=== PATIENT | female | born 1970 | race Caucasian/White ===

== ENCOUNTER 2021-02-07 14:28 | Emergency (ER) | payer OTHER, SELFPAY ==
[2021-02-07 14:41] VITALS: BP 138/80; PULSE 97; RESP 20; TEMP 37.1; O2SAT 98
--- NOTE | 2021-02-07 15:12 | ED.URI ---
HPI - URI/Sore Throat General Chief Complaint: Upper Respiratory Infection Stated Complaint: sore throat Time Seen by Provider: 02/07/21 15:12 Source: patient Mode of arrival: ambulatory Limitations: no limitations History of Present Illness HPI Narrative: Priscilla Christine is a 51-year-old female with a PMH of T1 diabetes [facility] with upper respiratory symptoms but has had a dry cough for 2 weeks and shortness of breath x10 days, yesterday developedsore throat with chills Has had Levon & Levon vaccine Related Data Home Medications Medication Instructions Recorded Confirmed azelastine INTRANASAL 02/07/21 buspirone mg 02/07/21 cetirizine mg 02/07/21 clonazepam 02/07/21 cyclobenzaprine mg 02/07/21 famotidine 02/07/21 ibuprofen 02/07/21 insulin glargine [Basaglar KwikPen 50 unit SUBCUT BID 02/07/21 02/07/21 U-100 Insulin] insulin lispro [Humalog KwikPen unit SUBCUT 02/07/21 Insulin] losartan 02/07/21 metformin 1,000 mg PO DAILY 02/07/21 02/07/21 omeprazole 02/07/21 prazosin 02/07/21 sumatriptan succinate mg PO 02/07/21 trazodone 02/07/21 venlafaxine mg PO 02/07/21 Allergies Allergy/AdvReac Type Severity Reaction Status Date / Time Penicillins Allergy Hives Verified 02/07/21 15:10 Sulfa (Sulfonamide Allergy Hives Verified 02/07/21 15:11 Antibiotics) Review of Systems Review of Systems: CONSTITUTIONAL: Denies fever, chills, sweats. EYES: Denies visual changes, redness, discharge. ENT: Denies rhinorrhea, congestion, has sore throat, otalgia. CARDIOVASCULAR: Denies chest pain, palpitations, edema. RESPIRATORY: Denies dyspnea, wheezing, has dry cough and sob GASTROINTESTINAL: Denies abdominal pain, nausea, vomiting, diarrhea. GENITOURINARY: Denies dysuria, hematuria, abnormal discharge SKIN: Denies rash or itching. NEUROLOGIC: Denies numbness, or focal weakness. PSYCHIATRIC: Denies anxiety or depression. [facility] Past Medical History Medical History (Updated 02/07/21 @ 15:35 by Kacey Barrios CNP) Anxiety Bipolar 1 disorder Seasonal allergies Type 2 diabetes mellitus Surgical History Surgical History H/O: hysterectomy Family History Family History Other Diabetes mellitus Heart disease Hypertension Social History Social History (Updated 02/07/21 @ 15:26 by Kacey Barrios CNP) Smoking status: Never smoker Alcohol intake: never Substance use: never Comments At time of signature, I agree with nursing past medical, surgical, social and family history. There is no relevant family history pertinent to the presenting complaint. Exam Narrative: GENERAL: This is a well-nourished, well-developed patient, in mild distress. HEAD: normocephalic, atraumatic. EYES: Sclera clear/white. Vision is grossly intact. EARS: External ears normal,. Hearing grossly intact. NOSE: External nose normal without nasal discharge, nares without redness, no rhinorrhea. THROAT: Mucous membranes moist, posterior pharynx erythema with left-sided exudate deep on left side NECK: Neck supple,tender bilateral CARDIOVASCULAR: Regular rate and rhythm without murmurs, gallops, or rubs. RESPIRATORY: Clear to auscultation. Breath sounds equal bilaterally. No wheezes, rales, or rhonchi. GASTROINTESTINAL: Abdomen soft, SKIN: warm, intact with no suspicious lesions or rash, good texture and turgor. NEURO: awake, alert, and oriented to person, place and time. There were no obvious focal neurologic abnormalities. Steady gait EXTREMITIES: Normal range of motion. BACK: Nontender without deformity Course Course Emergency Course: Patient comes with 2 weeks of cough, 10 days of shortness of breath which can be caused by back pain, she days sore throat It was negative, Covid test was negative Based on physical exam started on Keflex (patient states she can take this even with a m
== END 2021-02-07 15:41 | disposition home or self-care (01) ==
PROVIDERS: Emergency Provider Nurse Practitioner; PCP Internal Medicine
DX: R05 Cough (principal); J02.9 Acute pharyngitis, unspecified; E11.9 Type 2 diabetes mellitus without complications
CPT/HCPCS: 87081; 87880; 99203; G0463

== ENCOUNTER 2021-04-19 14:39 | Emergency (ER) | payer OTHER, SELFPAY ==
[2021-04-19 14:42] VITALS: BP 145/94; PULSE 106; RESP 20; TEMP 37.2; O2SAT 98
[2021-04-19 14:59] VITALS: BP 145/94; PULSE 106; RESP 20; TEMP 37.2; O2SAT 98
--- NOTE | 2021-04-19 15:14 | ED.URI ---
HPI - URI/Sore Throat General Chief Complaint: Upper Respiratory Infection Stated Complaint: sinus infection Time Seen by Provider: 04/19/21 14:49 Source: patient and RN notes reviewed Mode of arrival: ambulatory Limitations: no limitations History of Present Illness HPI Narrative: Patient presents today with a 10 to 14-day history of cough, congestion, postnasal drip, sore throat. Patient noticed a blister on her left tonsil 5 days ago as well. She currently rates her sore throat 5/10 and has been taking Tylenol and Sudafed with mild relief. History of diabetes. MD elicited complaint: sore throat and nasal congestion Related Data Home Medications Medication Instructions Recorded Confirmed azelastine 137 mcg INTRANASAL DAILY 02/07/21 04/19/21 buspirone 10 mg PO DAILY 02/07/21 04/19/21 cetirizine 10 mg PO DAILY 02/07/21 04/19/21 clonazepam 0.5 mg PO DAILY 02/07/21 04/19/21 cyclobenzaprine 5 mg PO DAILY 02/07/21 04/19/21 famotidine 40 mg PO DAILY 02/07/21 04/19/21 insulin glargine [Basaglar KwikPen 50 unit SUBCUT BID 02/07/21 04/19/21 U-100 Insulin] insulin lispro [Humalog KwikPen 100 unit SUBCUT DIRECTED PRN 02/07/21 04/19/21 Insulin] losartan 10 mg PO DAILY 02/07/21 04/19/21 metformin 1,000 mg PO DAILY 02/07/21 04/19/21 omeprazole 20 mg PO DAILY 02/07/21 04/19/21 prazosin 2 mg PO DAILY 02/07/21 04/19/21 sumatriptan succinate 50 mg PO DAILY 02/07/21 04/19/21 trazodone 100 mg PO DAILY 02/07/21 04/19/21 venlafaxine 150 mg PO DAILY 02/07/21 04/19/21 escitalopram oxalate 10 mg PO DAILY 04/19/21 04/19/21 methylphenidate HCl 5 mg PO DAILY 04/19/21 04/19/21 [id number] acid 18 tablet PO DAILY 04/19/21 04/19/21 [Certavite-Antioxidant] Allergies Allergy/AdvReac Type Severity Reaction Status Date / Time Penicillins Allergy Hives Verified 04/19/21 14:49 Sulfa (Sulfonamide Allergy Hives Verified 04/19/21 14:49 Antibiotics) Review of Systems Review of Systems: CONSTITUTIONAL: Denies body aches, fever, chills, or sweats. EYES: Denies visual changes, redness, or discharge. ENT: Denies otalgia.+ Congestion, sinus pressure, postnasal drip, sore throat CARDIOVASCULAR: Denies chest pain, palpitations, or edema. RESPIRATORY: Denies dyspnea.+ Cough GASTROINTESTINAL: Denies abdominal pain, nausea, vomiting, or diarrhea. GENITOURINARY: Denies dysuria or hematuria. SKIN: Denies rash, itching, or wounds. MUSCULOSKELETAL: Denies back pain, joint pain, or myalgia. NEUROLOGIC: Denies headache, numbness, tingling, or weakness. PSYCH: Denies depression or anxiety. [facility] Past Medical History Medical History (Updated 04/19/21 @ 15:23 by Hannah Davis, CONCRETE SPREADER, ) Anxiety Bipolar 1 disorder Delivery with history of Depression High cholesterol Seasonal allergies Type 2 diabetes mellitus Surgical History Surgical History H/O: hysterectomy Family History Family History Other Diabetes mellitus Heart disease Hypertension Social History Social History Smoking status: Never smoker Alcohol intake: never Substance use: never Comments At time of signature, I have reviewed and agree with nursing past medical, surgical, social and family history unless otherwise noted. Please see nursing chart for further information. There is no relevant family history pertinent to the presenting complaint Exam Narrative: GENERAL: Well-appearing, well-nourished, and in no acute distress. HEAD: Normocephalic, atraumatic. EYES: EOMI. No redness or drainage. Conjunctivae normal. ENT: Mucous membranes pink and moist. Nares clear. No rhinorrhea. TMs normal bilaterally. Throat mildly erythematous. There appears to be a small tonsil stone on the left tonsil. Uvula midline. NECK: Normal AROM. Supple. No lymphadenopathy.
== END 2021-04-19 15:27 | disposition home or self-care (01) ==
PROVIDERS: Emergency Provider Nurse Practitioner; PCP Internal Medicine
DX: J02.0 Streptococcal pharyngitis (principal); E78.00 Pure hypercholesterolemia, unspecified; E11.9 Type 2 diabetes mellitus without complications; F41.9 Anxiety disorder, unspecified; F32.A Depression, unspecified
CPT/HCPCS: 87880; 99213; G0463

== ENCOUNTER 2021-11-15 14:07 | Emergency (ER) | payer OTHER, SELFPAY ==
--- NOTE | 2021-11-15 14:08 | ED.URI ---
HPI - URI/Sore Throat General Stated Complaint: Sinus Pain Time Seen by Provider: 11/15/21 14:19 Source: patient and RN notes reviewed Mode of arrival: ambulatory Limitations: no limitations History of Present Illness HPI Narrative: 51-year-old female with history of diabetes presents with 2-week history of sinus drainage, pressure, congestion, sinus pain, pain behind her eyes, felt it helped. She reports she is taking [id number] medications such as Mucinex without relief. She reports history of chronic she reports cough that is causing it to be difficult to keep her CPAP on at night. She denies shortness of breath, fever, bodies, chills, sweats. She reports she took a negative COVID test 1 week ago MD elicited complaint: cough and sore throat Related Data Home Medications Medication Instructions Recorded Confirmed azelastine 137 mcg (0.1 %) nasal 137 mcg intranasal DAILY 02/07/21 11/15/21 spray aerosol buspirone 10 mg tablet 10 mg PO DAILY 02/07/21 11/15/21 cetirizine 10 mg tablet 10 mg PO DAILY 02/07/21 11/15/21 clonazepam 0.5 mg tablet 0.5 mg PO DAILY 02/07/21 11/15/21 cyclobenzaprine 5 mg tablet 5 mg PO DAILY 02/07/21 11/15/21 famotidine 40 mg tablet 40 mg PO DAILY 02/07/21 11/15/21 insulin glargine 100 unit/mL (3 50 unit subcut BID 02/07/21 11/15/21 mL) subcutaneous pen (Basaglar KwikPen U-100 Insulin) insulin lispro 100 unit/mL 100 unit subcut DIRECTED PRN 02/07/21 11/15/21 subcutaneous pen (Humalog KwikPen Hyperglycemia (U-100) Insulin) losartan 100 mg tablet 10 mg PO DAILY 02/07/21 11/15/21 metformin 500 mg tablet,extended 1,000 mg PO DAILY 02/07/21 11/15/21 release 24 hr omeprazole 20 mg capsule,delayed 20 mg PO DAILY 02/07/21 11/15/21 release prazosin 2 mg capsule 2 mg PO DAILY 02/07/21 11/15/21 sumatriptan succinate 50 mg tablet 50 mg PO DAILY 02/07/21 11/15/21 trazodone 100 mg tablet 100 mg PO DAILY 02/07/21 11/15/21 venlafaxine 150 mg 150 mg PO DAILY 02/07/21 11/15/21 capsule,extended release 24 hr escitalopram oxalate 10 mg tablet 10 mg PO DAILY 04/19/21 11/15/21 methylphenidate HCl 5 mg tablet 5 mg PO DAILY 04/19/21 11/15/21 multivitamin-ferrous 18 tablet PO DAILY 04/19/21 11/15/21 fumarate-folic acid 18 mg-400 mcg tablet (Certavite-Antioxidant) ferrous sulfate 325 mg (65 mg tablet 11/15/21 iron) tablet (FeroSul) Allergies Allergy/AdvReac Type Severity Reaction Status Date / Time Penicillins Allergy Hives Verified 11/15/21 14:25 Sulfa (Sulfonamide Allergy Hives Verified 11/15/21 14:25 Antibiotics) Review of Systems Review of Systems: CONSTITUTIONAL: Reports malaise. Denies chills, sweats, or fever. EYES: Denies visual changes, redness, or discharge. ENT: Reports rhinorrhea, congestion, sinus pain, otalgia. Denies sore throat. CARDIOVASCULAR: Denies chest pain, palpitations, or edema. RESPIRATORY: Reports cough. Denies dyspnea. GASTROINTESTINAL: Denies abdominal pain, nausea, vomiting, diarrhea SKIN: Denies rash or itching. MUSCULOSKELETAL: Denies myalgia. NEUROLOGIC: Reports headache. All systems reviewed & are unremarkable except as noted in HPI and below PMFSH Past Medical History Medical History (Updated 11/15/21 @ 14:25 by Kary Worley NP) Anxiety Bipolar 1 disorder Delivery with history of Depression High cholesterol Seasonal allergies Type 2 diabetes mellitus Surgical History Surgical History H/O: hysterectomy Family History Family History Other Diabetes mellitus Heart disease Hypertension Social History Social History Smoking status: Never smoker Alcohol intake: never Substance use: never Comments At time of signature, agree with nursing past medical, surgical, social and family history. There is no relevant family history pert
[2021-11-15 14:12] VITALS: BP 140/78; PULSE 90; RESP 20; TEMP 36.6; O2SAT 98
== END 2021-11-15 14:30 | disposition home or self-care (01) ==
PROVIDERS: Emergency Provider Nurse Practitioner
DX: J01.90 Acute sinusitis, unspecified (principal); E78.00 Pure hypercholesterolemia, unspecified; E11.9 Type 2 diabetes mellitus without complications; F41.9 Anxiety disorder, unspecified; F32.A Depression, unspecified
CPT/HCPCS: 99213; G0463

== ENCOUNTER 2022-03-22 09:51 | Outpatient (CLI) | payer OTHER, SELFPAY | END 2022-03-22 09:52 | disposition home or self-care (01) | LOC: ANHBWCAUD 09:53 | DX: H90.3 Sensorineural hearing loss, bilateral (principal) | CPT/HCPCS: 92557; 92567 ==

== ENCOUNTER 2022-04-05 14:55 | Emergency (ER) | payer OTHER, SELFPAY ==
[2022-04-05 15:01] VITALS: BP 139/75; PULSE 92; RESP 22; TEMP 36.9; O2SAT 99
--- NOTE | 2022-04-05 15:15 | ED.URI ---
HPI - URI/Sore Throat General Chief Complaint: Upper Respiratory Infection Stated Complaint: Chest Congestion/Cough Time Seen by Provider: 04/05/22 15:15 Source: patient and RN notes reviewed Mode of arrival: ambulatory Limitations: no limitations History of Present Illness HPI Narrative: 52-year-old female presented for complaint of sinus congestion, cough, and subjective fever for 3 days. Cough is nonproductive. She denies shortness of breath, wheezing, or chest pain. She endorses 2 episodes of vomiting yesterday, which she states was a result of severe coughing. She is taking Sudafed and Motrin for symptoms. She denies sick contacts. MD elicited complaint: cough Related Data Home Medications Medication Instructions Recorded Confirmed azelastine 137 mcg (0.1 %) nasal 137 mcg intranasal DAILY 02/07/21 11/15/21 spray aerosol cetirizine 10 mg tablet 10 mg PO DAILY 02/07/21 11/15/21 cyclobenzaprine 5 mg tablet 5 mg PO DAILY 02/07/21 11/15/21 metformin 500 mg tablet,extended 1,000 mg PO DAILY 02/07/21 11/15/21 release 24 hr omeprazole 20 mg capsule,delayed 20 mg PO DAILY 02/07/21 11/15/21 release prazosin 2 mg capsule 2 mg PO DAILY 02/07/21 11/15/21 sumatriptan succinate 50 mg tablet 50 mg PO DAILY PRN Migraine 02/07/21 04/05/22 Headache trazodone 100 mg tablet 100 mg PO DAILY 02/07/21 11/15/21 venlafaxine 150 mg 150 mg PO DAILY 02/07/21 11/15/21 capsule,extended release 24 hr escitalopram oxalate 10 mg tablet 10 mg PO DAILY 04/19/21 11/15/21 buspirone 30 mg tablet 30 mg PO BID 04/05/22 04/05/22 ergocalciferol (vitamin D2) 1,250 1,250 mcg PO WEEKLY 04/05/22 04/05/22 mcg (50,000 unit) capsule ferrous sulfate 325 mg (65 mg 65 mg PO DAILY 04/05/22 04/05/22 iron) tablet (FeroSul) fluoxetine 20 mg capsule 20 mg PO DAILY 04/05/22 04/05/22 nystatin 100,000 unit/gram topical 1 applic topical DAILY 04/05/22 04/05/22 cream Allergies Allergy/AdvReac Type Severity Reaction Status Date / Time Penicillins Allergy Intermediate Hives Verified 04/05/22 15:13 Sulfa (Sulfonamide Allergy Intermediate Hives Verified 04/05/22 15:13 Antibiotics) Review of Systems Review of Systems: CONSTITUTIONAL: Endorses malaise, chills, sweats, fever EYES: Denies visual changes, redness, or discharge ENT: Reports rhinorrhea, congestion, denies sinus pain, otalgia, sore throat CARDIOVASCULAR: Denies chest pain, palpitations, edema RESPIRATORY: Reports cough, post nasal drainage. Denies dyspnea GASTROINTESTINAL: Denies abdominal pain, nausea, diarrhea SKIN: Denies rash or itching MUSCULOSKELETAL: Denies myalgia NEUROLOGIC: Denies headache [facility] Past Medical History Medical History (Updated 04/05/22 @ 15:40 by Ofelia Sarmiento, PIPING ENGINEER) Anxiety Bipolar 1 disorder Delivery with history of Depression High cholesterol Seasonal allergies Type 2 diabetes mellitus Surgical History Surgical History H/O: hysterectomy Family History Family History Other Diabetes mellitus Heart disease Hypertension Social History Social History Smoking status: Never smoker Alcohol intake: never Substance use: never Exam Narrative: GENERAL: Ill-appearing, nontoxic HEAD: Normocephalic EYES: PERRLA, conjunctivae clear ENT: Mucous membranes moist. TM pearly woodson with dull light reflex bilaterally; no tragal tenderness. Oropharynx erythematous without lesions or exudate, no drooling, no hoarseness, no trismus, uvula midline. NECK: Supple. No lymphadenopathy CHEST: Clear to auscultation, breath sounds equal. No wheezing, rhonchi, rales, or stridor. Frequent nonproductive cough. HEART: Regular rate and rhythm. No murmur heard. SKIN: Warm, dry, no rash. NEURO: Alert and oriented x3. PSYCH: Normal mood and affect Course Course Emerge
== END 2022-04-05 15:45 | disposition home or self-care (01) ==
PROVIDERS: Emergency Provider Nurse Practitioner Family
DX: J06.9 Acute upper respiratory infection, unspecified (principal); F31.9 Bipolar disorder, unspecified; E78.00 Pure hypercholesterolemia, unspecified; E11.9 Type 2 diabetes mellitus without complications; Z20.822 Contact with and (suspected) exposure to COVID-19
CPT/HCPCS: 87426; 87804; 99213; C9803; G0463

== ENCOUNTER 2023-01-29 14:42 | Emergency (ER) | payer MEDICARE, MEDICAID, SELFPAY ==
--- NOTE | 2023-01-29 14:47 | ED.URI ---
HPI - URI/Sore Throat General Chief Complaint: Upper Respiratory Infection Stated Complaint: Sinus Pain Time Seen by Provider: 01/29/23 15:04 Source: patient and RN notes reviewed Mode of arrival: ambulatory Limitations: no limitations History of Present Illness HPI Narrative: 53-year-old female presents with concern for several week history of sinus pressure, pain, drainage. She reports chronic sinus problems. Reports she has been taking [id number]-[id number] medications without relief. She reports chronic use of Afrin. MD elicited complaint: nasal congestion Related Data Home Medications Medication Instructions Recorded Confirmed azelastine 137 mcg (0.1 %) nasal 137 mcg intranasal DAILY 02/07/21 01/29/23 spray aerosol cetirizine 10 mg tablet 10 mg PO DAILY 02/07/21 01/29/23 cyclobenzaprine 5 mg tablet 5 mg PO DAILY 02/07/21 01/29/23 metformin 500 mg tablet,extended 1,000 mg PO DAILY 02/07/21 01/29/23 release 24 hr omeprazole 20 mg capsule,delayed 20 mg PO BID 02/07/21 01/29/23 release prazosin 2 mg capsule 2 mg PO BID 02/07/21 01/29/23 sumatriptan succinate 50 mg tablet 50 mg PO DAILY PRN Migraine 02/07/21 01/29/23 Headache trazodone 100 mg tablet 150 mg PO DAILY 02/07/21 01/29/23 venlafaxine 150 mg 150 mg PO DAILY 02/07/21 01/29/23 capsule,extended release 24 hr escitalopram oxalate 10 mg tablet 10 mg PO DAILY 04/19/21 01/29/23 buspirone 30 mg tablet 30 mg PO BID 04/05/22 01/29/23 ergocalciferol (vitamin D2) 1,250 1,250 mcg PO WEEKLY 04/05/22 01/29/23 mcg (50,000 unit) capsule ferrous sulfate 325 mg (65 mg 65 mg PO DAILY 04/05/22 01/29/23 iron) tablet (FeroSul) fluoxetine 20 mg capsule 20 mg PO DAILY 04/05/22 01/29/23 nystatin 100,000 unit/gram topical 1 applic topical DAILY 04/05/22 01/29/23 cream Allergies Allergy/AdvReac Type Severity Reaction Status Date / Time Penicillins Allergy Intermediate Hives Verified 01/29/23 15:06 Sulfa (Sulfonamide Allergy Intermediate Hives Verified 01/29/23 15:06 Antibiotics) Review of Systems Review of Systems: CONSTITUTIONAL: Denies malaise, chills, sweats, or fever. EYES: Denies visual changes, redness, or discharge. ENT: Reports rhinorrhea, congestion, sinus pain reports oral sores under heard dentures. Denies otalgia and sore throat. CARDIOVASCULAR: Denies chest pain, palpitations, or edema. RESPIRATORY: Denies cough. Denies dyspnea. GASTROINTESTINAL: Denies abdominal pain, nausea, vomiting, diarrhea SKIN: Denies rash or itching. MUSCULOSKELETAL: Denies myalgia. All systems reviewed & are unremarkable except as noted in HPI and below PMFSH Past Medical History Medical History (Updated 01/29/23 @ 15:12 by Kary Worley NP) Anxiety Bipolar 1 disorder Delivery with history of Depression High cholesterol Seasonal allergies Type 2 diabetes mellitus Surgical History Surgical History H/O: hysterectomy Family History Family History Other Diabetes mellitus Heart disease Hypertension Social History Social History Smoking status: Never smoker Alcohol intake: never Substance use: never Comments At time of signature, agree with nursing past medical, surgical, social and family history. There is no relevant family history pertinent to the presenting complaint Exam Narrative: GENERAL: Well-appearing, well-nourished, and in no acute distress. HEAD: Normocephalic EYES: PERRLA, conjunctivae clear ENT: Nares clear, turbinates edematous and erythematous, sinus tenderness. Mucous membranes moist. TM pearly woodson with dull light reflex bilaterally; no tragal tenderness. Oropharynx not erythematous without lesions. Tonsils not enlarged and without exudate, no drooling, no hoarseness, no trismus, uvula midline. NECK: Supple. No lymphadenopathy C
[2023-01-29 14:51] VITALS: BP 137/82; PULSE 106; RESP 18; TEMP 35.9; O2SAT 97
== END 2023-01-29 15:15 | disposition home or self-care (01) ==
PROVIDERS: Emergency Provider Nurse Practitioner
DX: J01.90 Acute sinusitis, unspecified (principal); E78.00 Pure hypercholesterolemia, unspecified; E11.9 Type 2 diabetes mellitus without complications; Z79.84 Long term (current) use of oral hypoglycemic drugs; F41.9 Anxiety disorder, unspecified; F32.A Depression, unspecified
CPT/HCPCS: 99213; G0463

== ENCOUNTER 2023-05-02 10:42 | Emergency (ER) | payer MEDICARE, MEDICAID, SELFPAY ==
--- NOTE | 2023-05-02 10:54 | ED.URI ---
HPI - URI/Sore Throat General Chief Complaint: Upper Respiratory Infection Stated Complaint: Sinus Problems Source: patient and RN notes reviewed History of Present Illness HPI Narrative: 53 yo F presents to urgent care with complaints of sinus congestion, MCMANUS, and sinus pressure. Pt states her symptoms worsened 3-4 days ago but shes been congested for weeks. Pt reports right ear pain that radiates down her neck. Denies any fevers, chest pain, SOB, N/V/D. Pt took Mucinex yesterday. Related Data Home Medications Medication Instructions Recorded Confirmed azelastine 137 mcg (0.1 %) nasal 137 mcg intranasal DAILY 02/07/21 01/29/23 spray aerosol cetirizine 10 mg tablet 10 mg PO DAILY 02/07/21 01/29/23 cyclobenzaprine 5 mg tablet 5 mg PO DAILY 02/07/21 01/29/23 metformin 500 mg tablet,extended 1,000 mg PO DAILY 02/07/21 01/29/23 release 24 hr omeprazole 20 mg capsule,delayed 20 mg PO BID 02/07/21 01/29/23 release prazosin 2 mg capsule 2 mg PO BID 02/07/21 01/29/23 sumatriptan succinate 50 mg tablet 50 mg PO DAILY PRN Migraine 02/07/21 01/29/23 Headache trazodone 100 mg tablet 150 mg PO DAILY 02/07/21 01/29/23 venlafaxine 150 mg 150 mg PO DAILY 02/07/21 01/29/23 capsule,extended release 24 hr escitalopram oxalate 10 mg tablet 10 mg PO DAILY 04/19/21 01/29/23 buspirone 30 mg tablet 30 mg PO BID 04/05/22 01/29/23 ergocalciferol (vitamin D2) 1,250 1,250 mcg PO WEEKLY 04/05/22 01/29/23 mcg (50,000 unit) capsule ferrous sulfate 325 mg (65 mg 65 mg PO DAILY 04/05/22 01/29/23 iron) tablet (FeroSul) fluoxetine 20 mg capsule 20 mg PO DAILY 04/05/22 01/29/23 nystatin 100,000 unit/gram topical 1 applic topical DAILY 04/05/22 01/29/23 cream famotidine 40 mg tablet mg 05/02/23 insulin lispro 100 unit/mL 05/02/23 subcutaneous solution (Humalog U-100 Insulin) losartan 100 mg tablet mg 05/02/23 Allergies Allergy/AdvReac Type Severity Reaction Status Date / Time Penicillins Allergy Intermediate Hives Verified 01/29/23 15:06 Sulfa (Sulfonamide Allergy Intermediate Hives Verified 01/29/23 15:06 Antibiotics) Review of Systems Review of Systems: Pertinent positives and pertinent negatives per HPI. [facility] Past Medical History Medical History (Updated 05/02/23 @ 11:07 by Yashira Alatorre, SORAYA) Anxiety Bipolar 1 disorder Delivery with history of Depression High cholesterol Seasonal allergies Type 2 diabetes mellitus Surgical History Surgical History H/O: hysterectomy Family History Family History Other Diabetes mellitus Heart disease Hypertension Social History Social History Smoking status: Never smoker Alcohol intake: never Substance use: never Comments At the time of my signature, I reviewed and agree with the nursing past medical, surgical, social, and family history. There is no relevant family history pertinent to the patient complaint. Exam Narrative: GENERAL: This is a well-nourished, well-developed patient, in no apparent distress. HEAD: normocephalic, atraumatic. EYES: Sclera clear/white. Vision is grossly intact. EARS: External ears normal, auditory canals clear and without drainage, TMs normal without perforation. Hearing grossly intact. NOSE: External nose normal with no obvious nasal discharge, + congestion, maxillary sinus tenderness, frontal sinus tenderness THROAT: Mucous membranes moist, posterior pharynx clear. NECK: Neck supple, non-tender without lymphadenopathy, masses or thyromegaly. CARDIOVASCULAR: Regular rate and rhythm without murmurs, gallops, or rubs. RESPIRATORY: Clear to auscultation. Breath sounds equal bilaterally. No wheezes, rales, or rhonchi. SKIN: warm, intact with no suspicious lesions or rash, good texture and turgor. NEURO: awake, alert, and
[2023-05-02 10:55] VITALS: BP 147/79; PULSE 74; RESP 16; TEMP 36.4; O2SAT 97
== END 2023-05-02 11:14 | disposition home or self-care (01) ==
PROVIDERS: Emergency Provider Nurse Practitioner Family; PCP Family Medicine
DX: J32.9 Chronic sinusitis, unspecified (principal); E78.00 Pure hypercholesterolemia, unspecified; E11.9 Type 2 diabetes mellitus without complications; Z79.84 Long term (current) use of oral hypoglycemic drugs; F41.9 Anxiety disorder, unspecified; F32.A Depression, unspecified
CPT/HCPCS: 99213; G0463

== ENCOUNTER 2023-08-11 14:21 | Emergency (ER) | payer MEDICARE, MEDICAID, SELFPAY ==
[2023-08-11 14:35] VITALS: BP 126/76; PULSE 77; RESP 16; TEMP 37.1; O2SAT 98
[2023-08-11 15:13] VITALS: BP 126/76; PULSE 77; RESP 16; TEMP 37.1; O2SAT 98
--- NOTE | 2023-08-11 15:35 | ED.URI ---
HPI - URI/Sore Throat General Chief Complaint: Upper Respiratory Infection Stated Complaint: Cough/Sinus Drainage Time Seen by Provider: 08/11/23 15:35 Source: patient and RN notes reviewed Mode of arrival: ambulatory Limitations: no limitations History of Present Illness HPI Narrative: 53-year-old female presenting for complaint of sinus pressure and congestion over the past 2 weeks. Reports sinus pressure behind eyes. She started with a fever 4 days ago under endorses chills. She has taken Mucinex and ibuprofen for symptoms. She denies shortness of breath, wheezing, nausea, vomiting, diarrhea. Patient had an positive home COVID test yesterday. MD elicited complaint: cough Related Data Home Medications Medication Instructions Recorded Confirmed omeprazole 20 mg capsule,delayed 20 mg PO BID 02/07/21 08/11/23 release prazosin 2 mg capsule 2 mg PO BID 02/07/21 08/11/23 sumatriptan succinate 50 mg tablet 50 mg PO DAILY PRN Migraine 02/07/21 08/11/23 Headache trazodone 100 mg tablet 150 mg PO DAILY 02/07/21 08/11/23 buspirone 30 mg tablet 30 mg PO BID 04/05/22 08/11/23 ergocalciferol (vitamin D2) 1,250 1,250 mcg PO WEEKLY 04/05/22 08/11/23 mcg (50,000 unit) capsule fluoxetine 20 mg capsule 20 mg PO DAILY 04/05/22 08/11/23 insulin lispro 100 unit/mL 05/02/23 subcutaneous solution (Humalog U-100 Insulin) fluoxetine 10 mg capsule 10 mg PO DAILY 08/11/23 08/11/23 Allergies Allergy/AdvReac Type Severity Reaction Status Date / Time Penicillins Allergy Intermediate Hives Verified 08/11/23 14:49 Sulfa (Sulfonamide Allergy Intermediate Hives Verified 08/11/23 14:49 Antibiotics) Review of Systems Review of Systems: CONSTITUTIONAL: Endorses malaise, chills, sweats, fever EYES: Denies visual changes, redness, or discharge ENT: Reports rhinorrhea, congestion, sinus pain, denies otalgia, sore throat CARDIOVASCULAR: Denies chest pain, palpitations, edema RESPIRATORY: Reports cough, post nasal drainage. Denies dyspnea GASTROINTESTINAL: Denies abdominal pain, nausea, vomiting, diarrhea SKIN: Denies rash or itching MUSCULOSKELETAL: Denies myalgia PMFSH Past Medical History Medical History Anxiety Bipolar 1 disorder Delivery with history of Depression High cholesterol Seasonal allergies Type 2 diabetes mellitus Surgical History Surgical History H/O: hysterectomy Family History Family History Other Diabetes mellitus Heart disease Hypertension Social History Social History Smoking status: Never smoker Alcohol intake: never Substance use: never Exam Narrative: GENERAL: mildly Ill-appearing, nontoxic no acute distress. EYES: PERRLA, conjunctivae clear ENT: Mucous membranes moist. TM pearly woodson with dull light reflex bilaterally; no tragal tenderness. Oropharynx not erythematous without lesions or exudate, no drooling, no hoarseness, no trismus, uvula midline. NECK: Supple. No lymphadenopathy CHEST: Clear to auscultation, breath sounds equal. No wheezing, rhonchi, rales, or stridor. No respiratory distress, speaks in full sentences. HEART: Regular rate and rhythm. No murmur heard. SKIN: Warm, dry, no rash. NEURO: Alert and oriented x3. PSYCH: Normal mood and affect Course Course Emergency Course: Patient is aware of diagnosis, understands and agrees to treatment plan. Anticipatory guidance given. Patient agrees to follow-up as directed and is aware of reasons to seek care at the emergency department. Portions of this record may have been created with voice recognition software Level of Care: Express Care Visit Vital Signs Vital signs: Vital Signs Temperature 98.8 F 08/11/23 14:35 Pulse Rate 77 08/11/23 14:35 Respirato
== END 2023-08-11 15:46 | disposition home or self-care (01) ==
PROVIDERS: Emergency Provider Nurse Practitioner Family; PCP Family Medicine
DX: J06.9 Acute upper respiratory infection, unspecified (principal); Z20.822 Contact with and (suspected) exposure to COVID-19; E78.00 Pure hypercholesterolemia, unspecified; E11.9 Type 2 diabetes mellitus without complications; F41.9 Anxiety disorder, unspecified; F32.A Depression, unspecified; Z79.4 Long term (current) use of insulin
CPT/HCPCS: 87426; 87804; 99213; G0463

== ENCOUNTER 2023-12-24 12:26 | Emergency (ER) | payer MEDICARE, MEDICAID, SELFPAY ==
--- NOTE | 2023-12-24 12:38 | ED.URI ---
HPI - URI/Sore Throat General Chief Complaint: Upper Respiratory Infection Stated Complaint: poss sinus infection Source: patient and RN notes reviewed Mode of arrival: ambulatory Limitations: no limitations History of Present Illness HPI Narrative: 53 y/o female with hx DM presented for c/o feeling fatigue, headahce, nasal congestion and sinus pressure mostly behind the left eye. onset 2 weeks. Reports intermittent n/v/d which she attributes to the large amount of post nasal drainage. Reports she had double vision yesterday; described as blinking then the object echoes. This lasted about one hour yesterday. Says Blood sugar has been high and will drop suddenly; yesterday BS 200's, dropped to 95. Taking Mucinex and zyrtec. States she could be seen by pcp today but the clinic was closer. MD elicited complaint: cough Related Data Home Medications Medication Instructions Recorded Confirmed omeprazole 20 mg capsule,delayed 20 mg PO BID 02/07/21 12/24/23 release prazosin 2 mg capsule 2 mg PO BID 02/07/21 12/24/23 sumatriptan succinate 50 mg tablet 50 mg PO DAILY PRN Migraine 02/07/21 12/24/23 Headache trazodone 100 mg tablet 150 mg PO HS PRN Sleep 02/07/21 12/24/23 buspirone 30 mg tablet 30 mg PO BID 04/05/22 12/24/23 fluoxetine 20 mg capsule 20 mg PO DAILY 04/05/22 12/24/23 insulin lispro 100 unit/mL 05/02/23 subcutaneous solution (Humalog U-100 Insulin) azelastine 137 mcg (0.1 %) nasal 1 spray intranasal DAILY 12/24/23 12/24/23 spray famotidine 40 mg tablet 40 mg PO HS 12/24/23 12/24/23 gabapentin 100 mg capsule 200 mg PO TID 12/24/23 12/24/23 losartan 100 mg tablet 100 mg PO DAILY 12/24/23 12/24/23 metformin 1,000 mg tablet 1,000 mg PO BID 12/24/23 12/24/23 Allergies Allergy/AdvReac Type Severity Reaction Status Date / Time Penicillins Allergy Intermediate Hives Verified 12/24/23 12:39 Sulfa (Sulfonamide Allergy Intermediate Hives Verified 12/24/23 12:39 Antibiotics) Review of Systems Review of Systems: CONSTITUTIONAL: Endorses malaise, denies chills, sweats, fever EYES: Denies visual changes, redness, or discharge ENT: Reports rhinorrhea, congestion, sinus pain, denies otalgia, sore throat CARDIOVASCULAR: Denies chest pain, palpitations, edema RESPIRATORY: Reports cough, post nasal drainage. Denies dyspnea GASTROINTESTINAL: Denies abdominal pain, reports nausea, vomiting, diarrhea SKIN: Denies rash MUSCULOSKELETAL: denies myalgia [facility] Past Medical History Medical History Anxiety Bipolar 1 disorder Delivery with history of Depression High cholesterol Seasonal allergies Type 2 diabetes mellitus Surgical History Surgical History H/O: hysterectomy Family History Family History Other Diabetes mellitus Heart disease Hypertension Social History Social History Smoking status: Never smoker Alcohol intake: never Substance use: never Exam Narrative: GENERAL: well-appearing EYES: PERRLA, conjunctivae clear ENT: Mucous membranes moist. TMs pearly woodson with dull light reflex bilaterally; no tragal tenderness. Oropharynx not erythematous without lesions or exudate, no drooling, no hoarseness, no trismus, uvula midline. NECK: Supple. No lymphadenopathy CHEST: Clear to auscultation, breath sounds equal. HEART: Regular rate and rhythm. No murmur heard. SKIN: Warm, dry, no rash. NEURO: Alert and oriented x3. PSYCH: Normal mood and affect Course Course Emergency Course: Patient is aware of diagnosis, understands and agrees to treatment plan. Anticipatory guidance given. Patient agrees to follow-up as directed and is aware of reasons to seek care at the emergency department. Portions of this record may have been created with voice r
[2023-12-24 12:39] VITALS: BP 118/86; PULSE 78; RESP 16; TEMP 36.9; O2SAT 99
== END 2023-12-24 12:58 | disposition home or self-care (01) ==
PROVIDERS: Emergency Provider Nurse Practitioner Family
DX: J32.9 Chronic sinusitis, unspecified (principal); E78.00 Pure hypercholesterolemia, unspecified; E11.9 Type 2 diabetes mellitus without complications; Z79.4 Long term (current) use of insulin; Z79.84 Long term (current) use of oral hypoglycemic drugs; F41.9 Anxiety disorder, unspecified; F32.A Depression, unspecified
CPT/HCPCS: 99213; G0463